=== PATIENT | male | born 1970 | race Caucasian/White ===

== ENCOUNTER 2019-12-30 07:15 | Outpatient (CLI) | payer BC, SELFPAY ==
--- NOTE | 2019-12-30 07:21 | MR_ITS ---
WS: [id number] MRI LUMBAR SPINE WITH CONTRAST TECHNIQUE: Sagittal T1, T2 and STIR imaging. Axial T1 and T2 imaging. Post gadolinium imaging was obt ained. 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 No evidence of recurrent enhancing tumor or lesion. Normal expected postoperative enhanceme nt. No high-grade central canal stenosis. L1-L2: Normal. L2-L3: Normal. L3-L4: Minimal annular bulging. Mild facet arthropathy with slight narrowing of the right subarticula r recess. Foramen are patent. Spinal canal is patent. L4-L5: Postoperative changes right L4-5 hemilaminectomy. 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 N o evidence of recurrent or residual nerve sheath tumor. Postoperative enhancement in the right neural foramen and laminectomy defect. Shallow left subarticular disc protrusion with a small annular fissu re. Narrowing of the left subarticular recess. Left foramen is patent. Moderate left facet arthropath y. Mild clumping of the cauda equina nerve rootlets at this level unchanged L5-S1: Mild annular bulging with slight effacement of ventral thecal sac. Moderate facet arthropathy. Mild right greater than left foraminal narrowing. Tiny shallow central disc protrusion with slight e ffacement of ventral thecal sac. Visualized pelvic bony structures: Normal. Paravertebral soft tissues: Normal. MR/MR lumbar spine wo/w con [id number] IMPRESSION: 1. Postoperative changes right L4-5 hemilaminectomy with foraminotomy. 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 No evidence of residual or re current enhancing neoplasm. 2. Stable tiny left shallow subarticular protrusion L4-5 with narrowing of the left subarticular recess. 3. Small central protrusion L5-S1. 4. Mild right L5-S1 foraminal narrowing
== END 2019-12-30 07:16 | disposition home or self-care (01) ==
LOC: RADSHAW 07:19
PROVIDERS: PCP Family Medicine; Visit Provider Specialist
DX: D49.2 Neoplasm of unspecified behavior of bone, soft tissue, and skin (principal); M96.1 Postlaminectomy syndrome, not elsewhere classified; M51.27 Other intervertebral disc displacement, lumbosacral region
CPT/HCPCS: 72158; A9579

== ENCOUNTER → 2020-08-03 07:59 | Outpatient (BNVA) | payer BC, SELFPAY | PROVIDERS: PCP Family Medicine; Visit Provider Podiatrist Foot & Ankle Surgery | DX: M79.672 Pain in left foot (principal); M79.671 Pain in right foot | CPT/HCPCS: 73630 ==